=== PATIENT | male | born 1995 | race Caucasian/White ===

== ENCOUNTER 2021-01-24 20:39 | Emergency (ER) | payer MEDICAID ==
[~2021-01-24 20:39] MED LIST: AUGMENTIN 875-1 EACH PO; ZITHROMAX500 MG PO
[2021-01-24] MEDS ORDERED: BACTROBAN OINT22 GM EXT (23:00)
[2021-01-24] MEDS ORDERED: CEPHALEXIN500 M1 PO (23:00)
[2021-01-24] MEDS ORDERED: IBUPROFEN600 MG PO (23:00)
== END 2021-01-24 23:08 | disposition home or self-care (01) ==
LOC: ER1 20:39
DX: S61.012A Laceration without foreign body of left thumb without damage to nail, initial encounter (principal); F17.210 Nicotine dependence, cigarettes, uncomplicated; W26.9XXA Contact with unspecified sharp object(s), initial encounter
CPT/HCPCS: 12001; 99283